=== PATIENT | male | born 1965 | race Caucasian/White ===

== ENCOUNTER 2018-10-08 08:02 | Day surgery (SDC) | payer MEDICARE, OTHER ==
[2018-10-08] VITALS (7 sets, daily range): BP systolic 115–119; BP diastolic 65–85
[~2018-10-08] VITALS: Ht 182.9 cm; Wt 79.4 kg
[~2018-10-08 08:02] MED LIST: ADDERALL; ADDERALL XR PO; GABAPENTIN300 MG ORAL; NORCO 5-325 TA1 EACH ORAL; SKELAXIN800 MG PO; VITAMIN D1000 UNI1 ORAL; XANAX1 MG ORAL
[2018-10-08] MEDS ORDERED: Propofol 200mg/20ml IV ONE (09:06)
[2018-10-08] MEDS ORDERED: Lidocaine 1% MPF 10mg/ml 5ml ONE (09:06)
[2018-10-08] MEDS ORDERED: Midazolam 2mg/2ml Inj ONE (09:06)
--- NOTE | 2018-10-08 09:09 | Short Stay Surgery H&P ---
History of Present Illness History of Present Illness Chief Complaint colonoscopy HPI iGno Phan is a 53 year old male who was admitted on for Screening Patient History Allergies: Coded Allergies: LATEX (Verified Allergy, Severe, 10/07/18) HIVES,RASH PAST MEDICAL HISTORY: (1) Asthma (2) Back pain (3) Anxiety Medication History Scheduled Alprazolam* (Xanax*), 1 TAB ORAL BID, (Reported) Cholecalciferol (Vitamin D3)* (Vitamin D*), 5,000 UNIT ORAL DAILY, (Reported) Gabapentin* (Gabapentin*), 300 MG ORAL THREE TIMES A DAY, (Reported) Metaxalone (Skelaxin), 800 MG PO TID, (Reported) [Adderall Xr], 40 MG PO BID, (Reported) Scheduled PRN Hydrocodone Bit/Acetaminophen 5-325* ([place] 5-325*), 1 TAB ORAL Q4H PRN for For Pain, (Reported) Review of Systems Cardiovascular: Reports: no symptoms Respiratory: Reports: no symptoms Skeletal: Reports: see HPI Gastrointestinal: Reports: no symptoms Genitourinary: Reports: no symptoms Neurologic: Reports: no symptoms Endocrine: Reports: no symptoms Hematologic: Reports: no symptoms Physical Exam Vital Signs Last Vital Signs Date Time Temp Pulse Resp B/P (MAP) Pulse Ox O2 Delivery O2 Flow Rate FiO2 10/08/18 08:31 Room Air 10/08/18 08:29 98.2 68 18 119/79 97 Skin: normal HENT: normal Heart: normal Lungs: normal Abdomen: normal Extremities: normal Genitourinary: normal Plan Plan of Care colonoscopy Attestation Are the patient's medical conditions optimized for surgery? Attestation Response: yes Kimo Rodriguez MD Oct 08, 2018 09:09
--- NOTE | 2018-10-08 09:10 | Pre-Procedure Note/Attestation ---
Pre-Procedure Note/Attestation Complete Prior to Procedure Planned Procedure: not applicable Procedure Narrative: colonoscopy Indications for Procedure Pre-Operative Diagnosis: screening Attestation I attest that I discussed the nature of the procedure; its benefits; risks and complications; and alternatives (and the risks and benefits of such alternatives ), prior to the procedure, with the patient (or the patient's legal claim representative). I attest that, if there was a reasonable possibility of needing a blood transfusion, the patient (or the patient's legal claim representative) was given the [facility] standardized written summary, pursuant to the [place] Blood Safety Act ([place] Health and Safety Code # 1645, as amended). I attest that I re-evaluated the patient just prior to the surgery and that there has been no change in the patient's H&P, except as documented below: Kimo Rodriguez MD Oct 08, 2018 09:10
[2018-10-08] MEDS ORDERED: fentaNYL 100 mcg/2 mL IV PRN (09:15)
[2018-10-08] MEDS ORDERED: Midazolam 2mg/2ml Inj IVP PRN (09:15)
[2018-10-08] MEDS ORDERED: Atropine Inj 1mg/10ml Syr IV PRN (09:15)
[2018-10-08] MEDS ORDERED: DiphenhydrAMINE 50mg/ml Inj IVP PRN (09:15)
--- NOTE | 2018-10-08 09:32 | Anethesia Preoperative Eval ---
Anesthesia Pre-op PMH/ROS General Date of Evaluation: Oct 08, 2018 Time of Evaluation: 09:06 Anesthesiologist: bailey ASA Score: ASA 3 Mallampati Score Class I : Soft palate, uvula, fauces, pillars visible Class II: Soft palate, uvula, fauces visible Class III: Soft palate, base of uvula visible Class IV: Only hard plate visible Mallampati Classification: Class II Surgeon: pepper Diagnosis: colon screening Surgical Procedure: colonoscopy Anesthesia History: none Social History: smoking - former smoker Family History: no anesthesia problems Allergies: Coded Allergies: LATEX (Verified Allergy, Severe, 10/07/18) HIVES,RASH Medications: see eMAR Patient NPO?: Yes Past Medical History Pulmonary: Reports: asthma Neurologic/Psychiatric: Reports: depression/anxiety Anesthesia Pre-op Phys. Exam Physician Exam Last Vital Signs Date Time Temp Pulse Resp B/P (MAP) Pulse Ox O2 Delivery O2 Flow Rate FiO2 10/08/18 08:31 Room Air 10/08/18 08:29 98.2 68 18 119/79 97 Constitutional: NAD Neurologic: CN 2-12 intact Cardiovascular: RRR Respiratory: CTA Gastrointestinal: S/NT/ND Airway Exam Mallampati Score: Class II MO: full Neck: flexible TMD: 2fb ROM: full Dentures: upper, lower Anesthesia Pre-op A/P Studies Pre-op Studies: EKG - nsr Risk Assessment & Plan Assessment: asa3 Plan: mac Status Change Before Surgery: No Pre-Antibiotics Drug: Vandana Mckeon MD Oct 08, 2018 09:32
--- NOTE | 2018-10-08 09:49 | Endoscopy Procedure Note ---
Endoscopy Procedure Note General Indication for Procedure: screening Procedures Performed: colonoscopy Operative Findings/Diagnosis: one polyp Specimen: yes Pt Tolerated Procedure Well: Yes Estimated Blood Loss: none Anesthesia Anesthesiologist: johanna mendieta Anesthesia: MAC Inserted Devices Implant(s) used?: No Quality Quality of Bowel Preparation: Good Did scope reach the cecum?: Yes Was there any complications?: No GI Core Measures 50 yrs or older w/o bx or poly: No 10yrs. F/U not recommended: Yes If not recommended, why?: Above average risk 10 yrs. F/U needed: Yes 18 years or older w/prev. colo: No Kimo Rodriguez MD Oct 08, 2018 09:49
--- NOTE | 2018-10-08 13:01 | Immediate Post-Op Evaluation ---
Immediate Post-Op Evalulation Immediate Post-Op Evalulation Procedure: colonoscopy w/bx Date of Evaluation: Oct 08, 2018 Time of Evaluation: 10:05 IV Fluids: 0.9ns 300ml Blood Products: none Estimated Blood Loss: negligible Blood Pressure Systolic: 119 Blood Pressure Diastolic: 80 Pulse Rate: 67 Respiratory Rate: 18 O2 Sat by Pulse Oximetry: 100 Temperature (Fahrenheit): 97.7 Pain Score (1-10): 0 Nausea: No Vomiting: No Complications none Patient Status: awake, reacts, patent Hydration Status: adequate Drug: Vandana Mckeon MD Oct 08, 2018 13:01
--- NOTE | 2018-10-08 13:02 | 48 Hour Post Anesthesia Eval ---
Post Anesthesia Evaluation Procedure: colonoscopy w/bx Date of Evaluation: Oct 08, 2018 Time of Evaluation: 10:07 Blood Pressure Systolic: 118 0: 65 Pulse Rate: 87 Respiratory Rate: 18 Temperature (Fahrenheit): 97.7 O2 Sat by Pulse Oximetry: 100 Airway: patent Nausea: No Vomiting: No Pain Intensity: 0 Hydration Status: adequate Cardiopulmonary Status: stable Mental Status/LOC: patient returned to baseline Post-Anesthesia Complications: none Follow-up care needed: N/A Vandana Lopez MD Oct 08, 2018 13:02
--- NOTE | 2018-10-08 16:45 | Procedure Note ---
DATE OF PROCEDURE: 10/08/2018 SURGEON: Kimo Rodriguez M.D. PROCEDURE: Colonoscopy with biopsy. ANESTHESIA: Per Dr. Gonzalez. INSTRUMENT: Olympus adult flexible colonoscope INDICATIONS: Screening colonoscopy evaluation. The procedure, risks, benefits, and possible consequences, including hemorrhage, aspiration, perforation and infection, and alternative treatments, were explained to the patient/legal guardian by Dr. Kimo Rodriguez and the patient/legal guardian understood and accepted these risks. DESCRIPTION OF PROCEDURE: After informed consent was obtained and the patient was adequately sedated, first rectal exam was performed which was normal. Then, the scope was advanced from the rectum into the cecum, then subsequently terminal ileum. Quality of prep was good. The patient had some fluid throughout the colon, I would say about 5 to 10% of the colonic mucosa was not fully examined. We aspirated and cleaned up as best as we could. In the TI, there was a prominent fold of unknown significance. Biopsy from this fold was obtained. In the rectosigmoid area, there was a diminutive polyp removed with the cold biopsy forceps technique. The patient has some scattered diverticulosis in the left colon. Retroflexion of rectum showed evidence of small nonbleeding internal hemorrhoids. SUMMARY OF FINDINGS: 1. Prominent fold in the TI status post biopsy. 2. Diverticulosis. 3. One diminutive colonic polyp removed, see above for details. 4. Internal hemorrhoids. RECOMMENDATIONS: 1. Follow up biopsy results and treat accordingly. 2. We will recommend repeat colonoscopy in 5 years. I want to thank, Dr. Cooper Burgos, for this kind referral. Kimo Rodriguez M.D. DR: Mari JOB#: [id number] CC: Cooper Burgos M.D.; Fax#: [phone]
--- NOTE | 2018-10-08 17:52 | Cardiology Report ---
APPROVED REPORT EKG Measurement Heart [id number] [id number] Normal sinus rhythm Normal ECG
== END 2018-10-08 10:50 | disposition home or self-care (01) ==
LOC: GAS 08:02
DX: Z12.11 Encounter for screening for malignant neoplasm of colon (principal); K63.5 Polyp of colon; K57.30 Diverticulosis of large intestine without perforation or abscess without bleeding; K64.8 Other hemorrhoids; J45.909 Unspecified asthma, uncomplicated; F41.9 Anxiety disorder, unspecified; F43.29 Adjustment disorder with other symptoms; Z87.891 Personal history of nicotine dependence; Z91.040 Latex allergy status
CPT/HCPCS: 45380; 93005; J2250; J2704; 94003; 94150